=== PATIENT | male | born 1945 | race Caucasian/White ===

== ENCOUNTER 2021-10-06 12:03 | Outpatient (CLI) | payer MEDICARE, OTHER ==
[2021-10-06 13:06] LABS: Hemoglobin 16.7 g/dL (13.5-17.5); Mean Corpuscular HGB CONC 32.9 g/dL (32.0-36.0); Mean Corpuscular Volume 100.4 fl (81.2-95.1); Mean Platelet Volume 10.5 fl (7.4-10.4); Platelet Count 227 10x3/uL (150-450); RBC Distribution Width 13.5 % (11.5-14.5); Red Blood Cell (RBC) Count 5.06 10x6/uL (4.32-5.72); White Blood Cell (WBC) Count 8.8 10x3/uL (3.5-10.5)
[2021-10-06 13:23] LABS: Anion Gap 13 mmol/L (10-20); BUN (Urea Nitrogen) 17 mg/dL (8.4-25.7); Calc. Creatinine Clearance 0 mL/min (70-130); Calcium 9.2 mg/dL (7.8-10.44); Carbon Dioxide 29 mmol/L (23-31); Chloride 104 mmol/L (98-107); Glucose 113 mg/dL (83-110); Potassium 4.6 mmol/L (3.5-5.1); Sodium 141 mmol/L (136-145)
[2021-10-07 02:04] LABS: SARS-CoV-2 PCR by NAA Not Detected (NotDetected)
== END 2021-10-06 12:04 | disposition home or self-care (01) ==
LOC: LABBT 12:03
PROVIDERS: ATTEND Neurological Surgery
DX: Z01.818 Encounter for other preprocedural examination (principal); M54.16 Radiculopathy, lumbar region; Z20.822 Contact with and (suspected) exposure to COVID-19
CPT/HCPCS: 80048; 85027; 93005; U0003; U0005; 93010

== ENCOUNTER 2021-10-11 08:19 | Day surgery (SDC) | payer MEDICARE ==
[2021-10-10 12:42] VITALS: BMI 33.3
[2021-10-11] MEDS ORDERED: Sodium Chloride 0.9% 100 ML ONE ×3 (08:51→14:30)
[2021-10-11] MEDS ORDERED: CEFAZOLIN 2 GM VIAL ONE ×3 (08:51→14:30)
[2021-10-11] MEDS ORDERED: Bupivacaine PF 0.5% 30 ML VIAL ONE (09:31)
[2021-10-11] MEDS ORDERED: Lidocaine 1% w/Epinephrine 1:100K 20 ML VIAL ONE (09:31)
[2021-10-11] MEDS ORDERED: Thrombin 5000 UNITS/5 ML VIAL ONE (09:31)
[2021-10-11] MEDS ORDERED: fentaNYL Citrate/PF 100 MCG/2 ML SYRINGE ONE ×2 (10:07→10:08)
[2021-10-11] MEDS ORDERED: Glycopyrrolate 0.2 MG/ML 5 ML SYRINGE ONE (10:51)
[2021-10-11] MEDS ORDERED: Rocuronium Bromide 10 MG/ML (10ML VIAL) ONE (10:51)
[2021-10-11] MEDS ORDERED: Dexamethasone 20 MG/5 ML VIAL ONE (10:51)
[2021-10-11] MEDS ORDERED: Albuterol Sulfate HFA (OR ONLY) ONE (10:51)
[2021-10-11] MEDS ORDERED: Ondansetron PF 4 MG/2 ML Vial ONE (10:51)
[2021-10-11] MEDS ORDERED: PROPOFOL 200 MG/20 ML VIAL ONE (10:51)
[2021-10-11] MEDS ORDERED: PHENYLEPHRINE-NS 100 MCG/ML 10 ML SYRINGE ONE (10:51)
[2021-10-11] MEDS ORDERED: Lidocaine 1% PF 5 ML VIAL ONE (10:51)
[2021-10-11] MEDS ORDERED: Ketorolac Tromethamine 30 MG/ML VIAL ONE (10:51)
[2021-10-11] MEDS ORDERED: Fentanyl 100 MCG/2 ML VIAL ONE (12:51)
[2021-10-11] MEDS ORDERED: Tamsulosin HCl 0.4 MG CAP ONE (13:20)
== END 2021-10-11 15:57 | disposition home or self-care (01) ==
LOC: SDC 08:19
PROVIDERS: ATTEND Neurological Surgery
PROC: 01NB0ZZ Release Lumbar Nerve, Open Approach (ICD-10-PCS; principal; 2021-10-11)
DX: M48.061 Spinal stenosis, lumbar region without neurogenic claudication (principal); M54.16 Radiculopathy, lumbar region; I51.9 Heart disease, unspecified; M19.90 Unspecified osteoarthritis, unspecified site; F17.200 Nicotine dependence, unspecified, uncomplicated; Z79.82 Long term (current) use of aspirin; Z79.899 Other long term (current) drug therapy; Z88.7 Allergy status to serum and vaccine; Z95.1 Presence of aortocoronary bypass graft
CPT/HCPCS: 76000; J1100; J1885; J2405; J2704; J3010; J3490; S0020